=== PATIENT | male | born 1955 | race Caucasian/White ===

== ENCOUNTER → 2017-04-25 | Outpatient (CLI) | payer MEDICARE, OTHER ==
[~2017-04-25] MED LIST: ASPI-516 CHEW; CLON0.1T PO; CYCL10TA PO; CYMB60CA PO; GABA600T PO; HYDR-3583 PO; LEVO150T7 PO; LOSA50TA2 PO; MORP1TAB26 PO; SIMV20TA PO; WALKER WHEELS/F1 MIS; ZINC50TA2 PO
[2017-04-25 12:48] LABS: AUTOMATED NEUTROPHIL # 2.4 TH/MM3 (1.8-7.7); BASOPHIL # 0.1 TH/MM3 (0-0.2); EOSINOPHIL # 0.3 TH/MM3 (0-0.4); EOSINOPHIL % 3.8 % (0.0-4.0); HEMO FLAGS DIFF FINAL; LYMPH % 48.5 % (9.0-44.0); LYMPHOCYTE # 3.3 TH/MM3 (1.0-4.8); MEAN CELL VOLUME 91.1 FL (80.0-100.0); MEAN CORPUSCULAR HEMOGLOBIN 30.6 PG (27.0-34.0); MEAN CORPUSCULAR HGB CONC 33.5 % (32.0-36.0); MONO % 10.9 % (0.0-8.0); NEUT % 35.8 % (16.0-70.0); PLATELET COUNT 253 TH/MM3 (150-450); RED BLOOD COUNT 3.96 MIL/MM3 (4.50-5.90); RED CELL DISTRIBUTION WIDTH 13.9 % (11.6-17.2); WHITE BLOOD COUNT 6.7 TH/MM3 (4.0-11.0)
[2017-04-25 12:51] LABS: BLOOD, URINE NEG (NEG); COMMENT (UR) CULT NOT INDICATED; CULTURE IF INDICATED CULT NOT INDICATED; GLUCOSE,URINE NEG (NEG); KETONE, URINE NEG (NEG); MUCUS URINE FEW /lpf (OCC); NITRITE,URINE NEG (NEG); URINE COLOR YELLOW (YELLW/STRAW)
[2017-04-25 12:57] LABS: ANION GAP 5 MEQ/L (5-15); APTT (PATIENT) 27.5 SEC (24.3-30.1); AST (GOT) 22 U/L (15-37); BICARBONATE 32.2 MEQ/L (21.0-32.0); BLOOD UREA NITROGEN 21 MG/DL (7-18); CHLORIDE 102 MEQ/L (98-107); GLOMERULAR FILTRATION RATE 77 ML/MIN (>89); GLUCOSE,FASTING 112 MG/DL (74-99); INTERNATIONAL NORMALIZED RATIO 0.9 RATIO; POTASSIUM 4.4 MEQ/L (3.5-5.1); PROTHROMBIN TIME - PATIENT 10.2 SEC (9.8-11.6); SODIUM (NA) 139 MEQ/L (136-145)
[2017-04-25 12:59] LABS: ALKALINE PHOSPHATASE 123 U/L (45-117); ALT (GPT) 35 U/L (12-78); TOTAL BILIRUBIN ADULT 0.2 MG/DL (0.2-1.0)
--- NOTE | 2017-04-25 15:12 | RADRPT ---
EXAM DATE/TIME: 04/25/2017 13:05 [facility] COMPARISON: No previous studies available for comparison. INDICATIONS : Pre op evaluate for pneumonia, pneumothorax, or communicable diseases. MEDICAL HISTORY : None. SURGICAL HISTORY : None. ENCOUNTER: Initial ACUITY: 1 day PAIN SCORE: 0/10 LOCATION: Bilateral chest FINDINGS: PA and lateral views of the chest demonstrate the lungs to be symmetrically aerated without evidence of mass, infiltrate or effusion. The cardiomediastinal contours are unremarkable. Osseous structure s are intact. CONCLUSION: No acute disease. Clifford Araujo MD FACR on April 25, 2017 at 15:09 Board Certified Radiologist. This report was verified electronically.
--- NOTE | 2017-04-26 19:00 | EKG ---
Date Performed: 04/25/2017 Time Performed: 12:25:35 PTAGE: 62 years EKG: SINUS BRADYCARDIA BORDERLINE ECG Compared to prior tracing no significant change PREVIOUS TRACING : 03/27/2012 12.57.38 DOCTOR: Barbara Baker Interpretating Date/Time 04/26/2017 18:59:09
== END ==
LOC: CPRE 11:57
PROVIDERS: ATTEND Neurological Surgery
DX: Z01.810 Encounter for preprocedural cardiovascular examination (principal); Z01.811 Encounter for preprocedural respiratory examination; Z01.812 Encounter for preprocedural laboratory examination; Z01.818 Encounter for other preprocedural examination; Z79.01 Long term (current) use of anticoagulants; M51.36 Other intervertebral disc degeneration, lumbar region; M51.16 Intervertebral disc disorders with radiculopathy, lumbar region; M12.88 Other specific arthropathies, not elsewhere classified, other specified site; M99.83 Other biomechanical lesions of lumbar region; R94.31 Abnormal electrocardiogram [ECG] [EKG]
CPT/HCPCS: 36415; 71020; 80053; 81001; 85025; 85610; 85730; 86850; 86900; 86901; 86920; 93005

== ENCOUNTER 2017-04-27 05:54 | Inpatient (IN) | payer MEDICARE, OTHER ==
[~2017-04-27] VITALS: Ht 167.6 cm; Wt 95.3 kg
[~2017-04-27 05:54] MED LIST changes: -CYCL10TA PO; -WALKER WHEELS/F1 MIS
[2017-04-27] MEDS ORDERED: METOPROLOL TARTRATE 25 MG TAB PO PRN (06:30)
[2017-04-27] MEDS ORDERED: LACTATED RINGER'S 1000 ML IV PRN (06:30)
[2017-04-27] MEDS ORDERED: VANCOMYCIN 1,000 MG/NS 250ML (for <70 kg) IV SCH ×2 (06:30)
[2017-04-27] MEDS ORDERED: CHLORHEXIDINE GLUCONATE 2 % 1 PACK (2 CLOTHS) TOPICAL PRN (06:30)
[2017-04-27] MEDS ORDERED: SODIUM CHLORID 0.9% 500 ML IV PRN (06:30)
[2017-04-27] MEDS ORDERED: SODIUM CHLOR 0.9% 1000 ML INJ 1,000 ML IV SCH (06:30)
[2017-04-27] MEDS ORDERED: INSULIN HUMAN REGULAR 1,000 UNITS/10 ML VIAL SQ PRN (06:30)
[2017-04-27] MEDS ORDERED: THROMBIN (TOPICAL) 5,000 UNIT VIAL ONE (07:13)
[2017-04-27] MEDS ORDERED: GELFOAM SIZE 100 ONE (07:13)
[2017-04-27] MEDS ORDERED: VANCOMYCIN HCL 1000 MG VIAL ONE ×2 (07:13→07:14)
[2017-04-27] MEDS ORDERED: BUPIVACAINE/EPINEPHRINE 0.5% 50 ML VIAL ONE (07:13)
[2017-04-27] MEDS: POVIDONE IODINE 5% (ANTISEPSIS KIT) 4 APPLICATIONS EACH NARE PRN (07:14)
[2017-04-27] MEDS ORDERED: ACETAMINOPHEN 1000 MG/100 ML 100 ML IV ONE (07:18)
[2017-04-27] MEDS ORDERED: APREPITANT 40 MG CAP ONE (07:44)
--- NOTE | 2017-04-27 12:23 | RADRPT ---
EXAM DATE/TIME: 04/27/2017 08:06 [facility] COMPARISON: No previous studies available for comparison. INDICATIONS : L4-L5 posterior lumbar fusion. Level localization. MEDICAL HISTORY : None. SURGICAL HISTORY : Fusion, lumbar. ENCOUNTER: Initial ACUITY: 1 day PAIN SCORE: Non-responsive. LOCATION: Lumbar spine. FINDINGS: Metallic probe is directed at L5-S1 and L3-4. Previous lumbar fusion from L2-L4. CONCLUSION: Localization as above. Clifford Araujo MD FACR on April 27, 2017 at 12:20 Board Certified Radiologist. This report was verified electronically.
[2017-04-27] MEDS ORDERED: DO NOT ADM ANY ANTICOAGULANT DRUGS PRN (12:24)
--- NOTE | 2017-04-27 12:27 | RADRPT ---
EXAM DATE/TIME: 04/27/2017 08:06 [facility] COMPARISON: No previous studies available for comparison. INDICATIONS : Post-op L4-L5 posterior lumbar fusion. MEDICAL HISTORY : None. SURGICAL HISTORY : Fusion, lumbar. ENCOUNTER: Initial ACUITY: 1 day PAIN SCORE: Non-responsive. LOCATION: Lumbar spine. FINDINGS: Several views in the operating room show fusion procedure with interbody and posterior instrumentatio n at L4/L5. Patient was already fused at L2/L3 and L3/L4. Alignment is normal. No fractures are seen. CONCLUSION: New fusion at L4/L5. No acute complication demonstrated. Renaldo Richmond MD on April 27, 2017 at 12:24 Board Certified Radiologist. This report was verified electronically.
[2017-04-27] MEDS ORDERED: RESP: ALBUTEROL 2.5 MG/3 ML NEB (PRN) NEB (12:30)
[2017-04-27] MEDS ORDERED: ACETAMINOPHEN/HYDROcodone 325 MG/10 MG TAB PO PRN (12:30)
[2017-04-27] MEDS ORDERED: NALOXONE HCL 0.4 MG/ML AMP IV PUSH PRN (12:30)
[2017-04-27] MEDS ORDERED: ONDANSETRON HCL 4 MG/2 ML VIAL IV PUSH PRN (12:30)
[2017-04-27] MEDS ORDERED: cloNIDine HCL 0.1 MG TAB PO PRN (12:30)
[2017-04-27] MEDS ORDERED: diphenhydrAMINE HCL 25 MG CAP PO PRN (12:30)
[2017-04-27] MEDS ORDERED: ALUMINUM/MAGNESIUM/SIMETH 30 ML CUP PO PRN (12:30)
[2017-04-27] MEDS ORDERED: MENTHOL LOZENGE BUCCAL PRN (12:30)
[2017-04-27] MEDS ORDERED: ACETAMINOPHEN 325 MG TAB PO PRN (12:30)
[2017-04-27] MEDS ORDERED: PROMETHAZINE INJ 25 MG/ML VIAL IM PRN (12:30)
[2017-04-27] MEDS ORDERED: CALCIUM GLUCONATE INJ 1 GM in SODIUM CHLORIDE 0.9% INJ 100 ML IV PRN (12:30)
[2017-04-27] MEDS ORDERED: MAGNESIUM SULFATE INJ 2 GM in SODIUM CHLORIDE 0.9% INJ 100 ML IV PRN (12:30)
[2017-04-27] MEDS ORDERED: ZOLPIDEM TARTRATE 5 MG TAB PO PRN (12:30)
[2017-04-27] MEDS ORDERED: ASPIRIN 81 MG CHEW TAB CHEW SCH (12:30)
[2017-04-27] MEDS ORDERED: SODIUM CHLORIDE 0.9% FLUSH 10 ML FLUSH IV FLUSH PRN (12:30)
[2017-04-27] MEDS ORDERED: MAGNESIUM HYDROXIDE SUSP 30 ML CUP PO PRN (12:30)
[2017-04-27] MEDS ORDERED: POTASSIUM CHLOR 20 MEQ PREMIX 100 ML IV PRN (12:30)
--- NOTE | 2017-04-27 12:34 | PD.OP ---
[facility] Operative Report Date of Surgery: Apr 27, 2017 Preoperative Diagnosis: Intractable low back pain with bilateral radiculopathy and neurogenic claudication; L4-5 degenerative disc disease with facet and ligamentum flavum hypertrophy; previous L2-4 interbody fusion with pedicle screw fixation Postoperative Diagnosis: Same Procedure: Lumbar L4-5 transforaminal interbody fusion; L4 and L5 decompressive laminectomy with facetectomy; L4-5 pedicle screw fixation; L4-5 interbody cage placement; microsurgical technique Anesthesia: Gen. endotracheal by Tyrone Miller Surgeon: Christopher Torres M.D. Rn Manager(s): Hortencia Andino Operation and Findings: Following initiation of general endotracheal anesthesia, the patient had a Sheldon catheter placed along with sequential compression devices. A gram of vancomycin was administered intravenously and he was turned in a prone position on a Andreas frame, on a Rojelio table, and all pressure points adequately padded. The lumbosacral region was then prepped with Chloraprep and sterilely draped with Ioban along the usual sterile draping. A left paraspinal skin incision was then made extending from the L4-L5 level after infiltrating the skin with 0.5% Marcaine with epinephrine solution extending down through the fascia. The muscle fibers were split using avascular fatty plane and detached from the underlying facets, transverse process and lateral portion of lamina on the right side and a self-retaining retractor used for exposure. Intraoperative fluoroscopy was also used for level of confirmation along with microscope magnification for further dissection. There was significant facet and ligamentum flavum hypertrophy noted at the L4-5 levels. Left L4-5 facet was resected with a drill bit along with the lamina and there was severe foraminal and lateral recess stenosis from hypertrophied ligamentum flavum and facet which were decompressed bilaterally through the unilateral approach. There was significant disc height collapse along with disc protrusion also leading to the foraminal stenosis. Epidural hemostasis was achieved with bipolar cautery and Gelfoam with thrombin. Subsequently entered into the disc space at the L4-5 level with a #15 blade and kyle were used for discectomy. I then placed PEEK cage packed with local autograft bone and more local autograft bone was packed adjacent to the cage in interspace for added interbody fusion. With placement of the cage, I was able to distract the interspace and opened up the foramen further bilaterally. Subsequently in order to facilitate the fusion and provide stabilization, pedicle screw fixation was undertaken using [place] spine screws on entry point at the left L4-5 levels at the junction of the transverse process and facet. Subsequently using AP and lateral fluoroscopy tap and screw placement. The screws were then connected with a mukesh and locked in place with caps. The construct appeared very secure at this point. The area was then copiously irrigated with Vancomycin solution and powder. The retractors were removed and the bipolar cautery used for hemostasis. The muscle fascia was then approximated using 2-0 Vicryl interrupted stitches and then 3-0 Vicryl subcuticular stitches also placed in interrupted fashion. The final skin closure was completed with Mastisol and Steri-Strips. A sterile dressing was then applied. The patient then turned in supine position, extubated and taken to recovery room. There were no intraoperative complications. All sponge and needle counts were correct at the end of procedure. Estimated blood loss about 100 ml. Christopher Torres MD Apr 27, 2017 12:33
[2017-04-27] MEDS ORDERED: *morphine SULFATE 8 MG/ML PERIprocedure ONLY ONE (12:43)
[2017-04-27] MEDS ORDERED: *MEPERIDINE 25 MG INJ VIAL PERIprocedural Use ONLY ONE (13:00)
[2017-04-27] MEDS: NS + KCL 20 MEQ INJ 1,000 ML IV SCH ×2 (13:00→22:34)
[2017-04-27] MEDS: HYDROmorphone HCL PCA 6 MG/30 ML IV SCH ×2 (13:56→17:10)
[2017-04-27] MEDS ORDERED: PCA - TOTAL MG DILAUDID DELIVERED PER SHIFT OTHER SCH (14:00)
[2017-04-27 14:10] LABS: HEMATOCRIT 31.1 % (39.0-51.0); MEAN CELL VOLUME 91.5 FL (80.0-100.0); MEAN CORPUSCULAR HEMOGLOBIN 30.4 PG (27.0-34.0); MEAN CORPUSCULAR HGB CONC 33.3 % (32.0-36.0); PLATELET COUNT 209 TH/MM3 (150-450); REVIEW FLAG FINAL; WHITE BLOOD COUNT 10.3 TH/MM3 (4.0-11.0)
[2017-04-27] MEDS: GABAPENTIN 300 MG CAP PO SCH ×3 (15:00→20:52)
[2017-04-27] MEDS: CYCLOBENZAPRINE HCL 10 MG TAB PO SCH ×2 (15:15→20:52)
[2017-04-27 16:15] VITALS: BP 118/57; PULSE 65; RESP 18; TEMP 97.5; O2SAT 100
[2017-04-27 20:00] VITALS: BP 104/59; PULSE 64; RESP 19; TEMP 98; O2SAT 100
[2017-04-27] MEDS: MORPHINE SULFATE 60 MG CONTROLLED RELEASE TAB PO SCH (20:51)
[2017-04-27] MEDS: DOCUSATE SODIUM 100 MG CAP PO SCH (20:51)
[2017-04-27] MEDS: DULoxetine HCl DR 60 MG CAP PO SCH (20:51)
[2017-04-27] MEDS: SODIUM CHLORIDE 0.9% FLUSH 10 ML FLUSH IV FLUSH SCH (20:52)
[2017-04-27] MEDS: ACETAMINOPHEN/HYDROcodone 325 MG/10 MG TAB PO PRN (22:39)
[2017-04-28] VITALS (7 sets, daily range): BP systolic 115–149; BP diastolic 56–67; PULSE 16–80; RESP 16–21; TEMP 98.7–101.7; O2SAT 91–98
[2017-04-28] MEDS: LEVOTHYROXINE SODIUM 150 MCG TAB PO SCH (05:07)
[2017-04-28] MEDS: CYCLOBENZAPRINE HCL 10 MG TAB PO SCH ×3 (05:07→21:11)
[2017-04-28] MEDS: ACETAMINOPHEN/HYDROcodone 325 MG/10 MG TAB PO PRN ×2 (05:07→16:20)
[2017-04-28] MEDS: HYDROmorphone HCL PCA 6 MG/30 ML IV SCH (05:17)
--- NOTE | 2017-04-28 08:47 | HHI.NSPN ---
(Joselo Maguire) History Chief Complaint: Incisional back pain. (Joselo Maguire) Interval History Pt s/p lumbar L4-5 transforaminal interbody fusion; L4 and L5 decompressive laminectomy with facetectomy; L4-5 pedicle screw fixation; L4-5 interbody cage placement on 04/27/17. He complains of incisional back pain. He states the radicular pain in the lower extremities has resolved. No paresthesias in the lower extremity. No chest pain or shortness of breath. (Joselo Maguire) Review of Systems General: Negative for: fever, chills, insomnia Respiratory: Negative for: shortness of breath, cough, sputum Cardiovascular: Negative for: chest pain Gastrointestinal: Negative for: nausea, vomitting, diarrhea, constipation ( Joselo Maguire) Exam Results Vital Signs Date Time Temp Pulse Resp B/P (MAP) Pulse Ox O2 Delivery O2 Flow Rate FiO2 04/28/17 08:00 98.7 70 16 115/57 (76) 96 04/27/17 15:55 Room Air 04/27/17 15:00 2 Intake and Output 04/28/17 04/28/17 04/29/17 08:00 16:00 00:00 Output Total 550 ml Balance -550 ml (Joselo Maguire) Physical Examination Resp: CTA bilaterally Heart: NSR no murmurs Abd: Soft positive bs Skin: Pt log rolled incision clean and dry. Steri strips in place. Orders to leave bandage in place. Muscle: Moves LEs with good strength. Chronic weakness in right EHL and ankle is fused. Neuro: Pt awake and alert. Follows commands well. Speech clear and appropriate. (Joselo Maguire) Lab, Micro, Other Results Last Impressions Lumbar Spine X-Ray 04/27/17 0000 Signed Impressions: Service Date/Time: Thursday, April 27, 2017 08:06 - CONCLUSION: New fusion at L4/L5. No acute complication demonstrated. Renaldo Richmond MD Laboratory Tests Test 04/27/17 13:45 White Blood Count 10.3 TH/MM3 Red Blood Count 3.40 MIL/MM3 Hemoglobin 10.4 GM/DL Hematocrit 31.1 % Mean Corpuscular Volume 91.5 FL Mean Corpuscular Hemoglobin 30.4 PG Mean Corpuscular Hemoglobin Concent 33.3 % Red Cell Distribution Width 14.0 % Platelet Count 209 TH/MM3 Mean Platelet Volume 7.6 FL Blood Urea Nitrogen 23 MG/DL Creatinine 0.85 MG/DL Random Glucose 105 MG/DL Calcium Level 8.2 MG/DL Sodium Level 140 MEQ/L Potassium Level 4.0 MEQ/L Chloride Level 104 MEQ/L Carbon Dioxide Level 27.0 MEQ/L Anion Gap 9 MEQ/L Estimat Glomerular Filtration Rate 92 ML/MIN (Joselo Maguire) Medical Decision Making Impression and Plan A: 62 y/o M s/p Lumbar L4-5 transforaminal interbody fusion; L4 and L5 decompressive laminectomy with facetectomy; L4-5 pedicle screw fixation; L4-5 interbody cage placement on 04/27/17. P: Continue with pain control PT oob with brace on (Joselo Maguire) Attending Statement The exam, history, and the medical decision-making described in the above note were completed with the assistance of the mid-level provider. I reviewed and agree with the findings presented. I attest that I had a [id number] encounter with the patient on the same day, and personally performed and documented my assessment and findings in the medical record. (Christopher Torres MD) Joselo Maguire Apr 28, 2017 08:47 Christopher Torres MD Apr 28, 2017 15:06
[2017-04-28] MEDS: HYDROCHLOROTHIAZIDE 12.5 MG CAP PO SCH (09:00)
[2017-04-28] MEDS: LOSARTAN 50 MG TAB PO SCH (09:00)
[2017-04-28] MEDS ORDERED: NON-FORMULARY DRUG (Losartan-Hydrochlorothiazide 1 TAB) PO SCH (09:00)
[2017-04-28] MEDS: cloNIDine HCL 0.1 MG TAB PO SCH (09:00)
[2017-04-28] MEDS ORDERED: ZINC GLUCONATE 100 MG PO SCH (09:00)
[2017-04-28] MEDS: SODIUM CHLORIDE 0.9% FLUSH 10 ML FLUSH IV FLUSH SCH ×2 (09:15→21:00)
[2017-04-28] MEDS: DULoxetine HCl DR 60 MG CAP PO SCH ×2 (09:18→21:12)
[2017-04-28] MEDS: GABAPENTIN 300 MG CAP PO SCH ×4 (09:18→21:12)
[2017-04-28] MEDS: DOCUSATE SODIUM 100 MG CAP PO SCH ×2 (09:18→21:12)
[2017-04-28] MEDS: PRAVASTATIN SOD 40 MG TAB PO SCH (09:19)
[2017-04-28] MEDS: PANTOPRAZOLE SOD 40 MG DELAYED RELEASE TAB PO SCH (09:20)
[2017-04-28] MEDS: MORPHINE SULFATE 60 MG CONTROLLED RELEASE TAB PO SCH ×2 (09:20→21:12)
[2017-04-28] MEDS: LACTULOSE SYRUP 20 GM/30 ML CUP PO SCH (09:22)
[2017-04-28] MEDS: NS + KCL 20 MEQ INJ 1,000 ML IV SCH (09:59)
[2017-04-28] MEDS ORDERED: CYCL10TA PO (12:00)
[2017-04-28] MEDS ORDERED: HYDR-3583 PO (12:00)
[2017-04-28] MEDS: ASPIRIN 81 MG CHEW TAB CHEW SCH (13:01)
[2017-04-29] VITALS: BP 128/62; PULSE 70; RESP 17; TEMP 98.8; O2SAT 97
[2017-04-29] MEDS: ACETAMINOPHEN/HYDROcodone 325 MG/10 MG TAB PO PRN ×2 (01:02→10:41)
[2017-04-29 04:57] VITALS: BP 169/77; PULSE 72; RESP 18; TEMP 98.1; O2SAT 98
[2017-04-29] MEDS: HYDROmorphone HCL PF 1 MG/ML VIAL IV PUSH PRN ×5 (05:25→21:38)
[2017-04-29] MEDS: LEVOTHYROXINE SODIUM 150 MCG TAB PO SCH (05:28)
[2017-04-29] MEDS: CYCLOBENZAPRINE HCL 10 MG TAB PO SCH ×3 (05:28→21:38)
[2017-04-29 07:43] VITALS: BP 140/69; PULSE 69; RESP 18; TEMP 97.3; O2SAT 93
[2017-04-29] MEDS: PRAVASTATIN SOD 40 MG TAB PO SCH (08:29)
[2017-04-29] MEDS: DULoxetine HCl DR 60 MG CAP PO SCH ×2 (08:29→21:37)
[2017-04-29] MEDS: LACTULOSE SYRUP 20 GM/30 ML CUP PO SCH (08:29)
[2017-04-29] MEDS: cloNIDine HCL 0.1 MG TAB PO SCH (08:29)
[2017-04-29] MEDS: GABAPENTIN 300 MG CAP PO SCH ×4 (08:29→21:37)
[2017-04-29] MEDS: ASPIRIN 81 MG CHEW TAB CHEW SCH (08:29)
[2017-04-29] MEDS: LOSARTAN 50 MG TAB PO SCH (08:30)
[2017-04-29] MEDS: HYDROCHLOROTHIAZIDE 12.5 MG CAP PO SCH (08:30)
[2017-04-29] MEDS: DOCUSATE SODIUM 100 MG CAP PO SCH ×2 (08:30→21:37)
[2017-04-29] MEDS: MORPHINE SULFATE 60 MG CONTROLLED RELEASE TAB PO SCH ×2 (08:30→21:38)
[2017-04-29] MEDS: PANTOPRAZOLE SOD 40 MG DELAYED RELEASE TAB PO SCH (08:30)
[2017-04-29] MEDS: ENOXAPARIN SODIUM 40 MG/0.4 ML SYRINGE SQ SCH (08:31)
[2017-04-29] MEDS: SODIUM CHLORIDE 0.9% FLUSH 10 ML FLUSH IV FLUSH SCH ×2 (08:35→21:00)
--- NOTE | 2017-04-29 10:43 | HHI.NSPN ---
History Chief Complaint: Incisional back pain. Interval History Pt s/p lumbar L4-5 transforaminal interbody fusion; L4 and L5 decompressive laminectomy with facetectomy; L4-5 pedicle screw fixation; L4-5 interbody cage placement on 04/27/17. He complains of incisional back pain. He states the radicular pain in the lower extremities has resolved. No paresthesias in the lower extremity. No chest pain or shortness of breath. 04/29/17: Patient awake and alert resting comfortably in bed. Has not ambulated much other than to the bathroom with assistance. Has not had a bowel movement since surgery. Moderate incisional pain. Exam Results Vital Signs Date Time Temp Pulse Resp B/P (MAP) Pulse Ox O2 Delivery O2 Flow Rate FiO2 04/29/17 09:15 18 04/29/17 07:43 97.3 69 140/69 (92) 93 04/28/17 21:24 Nasal Cannula 2.00 Intake and Output 04/29/17 04/29/17 04/30/17 08:00 16:00 00:00 Output Total 500 ml Balance -500 ml Physical Examination Neurological examination: Patient awake alert. Moving all 4 extremities well with decreased right ankle movement secondary to operative fusion. Lumbar dressing is dry and intact. Lab, Micro, Other Results Last Impressions Lumbar Spine X-Ray 04/27/17 0000 Signed Impressions: Service Date/Time: Thursday, April 27, 2017 08:06 - CONCLUSION: New fusion at L4/L5. No acute complication demonstrated. Renaldo Richmodn MD Medical Decision Making Impression and Plan Assessmen: stable postop course status post L4-5 TLIF Plan: Continue physical therapy and mobilization. Felipe Ferrera MD Apr 29, 2017 10:43
[2017-04-29 12:31] VITALS: BP 152/70; PULSE 76; RESP 18; TEMP 97.9; O2SAT 97
[2017-04-29 20:00] VITALS: BP 151/74; PULSE 71; RESP 18; TEMP 99.1; O2SAT 94
[2017-04-30] MEDS: ACETAMINOPHEN/HYDROcodone 325 MG/10 MG TAB PO PRN ×3 (01:35→12:45)
[2017-04-30 04:00] VITALS: BP 145/70; PULSE 64; RESP 20; TEMP 98.7; O2SAT 97
[2017-04-30] MEDS: LEVOTHYROXINE SODIUM 150 MCG TAB PO SCH (04:55)
[2017-04-30] MEDS: CYCLOBENZAPRINE HCL 10 MG TAB PO SCH ×3 (04:55→23:24)
[2017-04-30] MEDS: HYDROmorphone HCL PF 1 MG/ML VIAL IV PUSH PRN ×3 (04:55→12:11)
[2017-04-30 08:22] VITALS: BP 130/65; PULSE 62; RESP 18; TEMP 98.2; O2SAT 97
[2017-04-30] MEDS: LACTULOSE SYRUP 20 GM/30 ML CUP PO SCH (08:28)
[2017-04-30] MEDS: DULoxetine HCl DR 60 MG CAP PO SCH ×2 (08:28→23:24)
[2017-04-30] MEDS: DOCUSATE SODIUM 100 MG CAP PO SCH ×2 (08:28→23:23)
[2017-04-30] MEDS: PRAVASTATIN SOD 40 MG TAB PO SCH (08:29)
[2017-04-30] MEDS: LOSARTAN 50 MG TAB PO SCH (08:29)
[2017-04-30] MEDS: cloNIDine HCL 0.1 MG TAB PO SCH (08:29)
[2017-04-30] MEDS: ASPIRIN 81 MG CHEW TAB CHEW SCH (08:29)
[2017-04-30] MEDS: MORPHINE SULFATE 60 MG CONTROLLED RELEASE TAB PO SCH ×2 (08:29→23:24)
[2017-04-30] MEDS: PANTOPRAZOLE SOD 40 MG DELAYED RELEASE TAB PO SCH (08:29)
[2017-04-30] MEDS: SODIUM CHLORIDE 0.9% FLUSH 10 ML FLUSH IV FLUSH SCH ×2 (08:29→21:00)
[2017-04-30] MEDS: GABAPENTIN 300 MG CAP PO SCH ×4 (08:29→23:23)
[2017-04-30] MEDS: ENOXAPARIN SODIUM 40 MG/0.4 ML SYRINGE SQ SCH (08:30)
[2017-04-30] MEDS: HYDROCHLOROTHIAZIDE 12.5 MG CAP PO SCH (08:30)
--- NOTE | 2017-04-30 11:13 | HHI.NSPN ---
History Chief Complaint: Incisional back pain. Interval History Pt s/p lumbar L4-5 transforaminal interbody fusion; L4 and L5 decompressive laminectomy with facetectomy; L4-5 pedicle screw fixation; L4-5 interbody cage placement on 04/27/17. He complains of incisional back pain. He states the radicular pain in the lower extremities has resolved. No paresthesias in the lower extremity. No chest pain or shortness of breath. 04/29/17: Patient awake and alert resting comfortably in bed. Has not ambulated much other than to the bathroom with assistance. Has not had a bowel movement since surgery. Moderate incisional pain. 04/30: Patient continues to complain of incisional pain in the right back. He is moving all 4 extremities well without complaints of radicular pain. Exam Results Vital Signs Date Time Temp Pulse Resp B/P (MAP) Pulse Ox O2 Delivery O2 Flow Rate FiO2 04/30/17 09:01 18 04/30/17 08:22 98.2 62 130/65 (86) 97 04/29/17 11:05 Nasal Cannula 2.00 Intake and Output 04/30/17 04/30/17 05/01/17 08:00 16:00 00:00 Output Total 1800 ml Balance -1800 ml Physical Examination Neurological examination: Patient awake, alert. Moving all 4 extremities well with decreased right ankle movement secondary to operative fusion. Lumbar dressing was removed today. Incision is intact without drainage. Lab, Micro, Other Results Last Impressions Lumbar Spine X-Ray 04/27/17 0000 Signed Impressions: Service Date/Time: Thursday, April 27, 2017 08:06 - CONCLUSION: New fusion at L4/L5. No acute complication demonstrated. Renaldo Richmond MD Medical Decision Making Impression and Plan Assessmen: Status post L4 5 TLIF. Patient with complaints of incisional pain and has not had much in the way of mobilization since surgery. Plan: Continue observation and stress mobilization out of bed. Sheldon will be discontinued today. Felipe Ferrera MD Apr 30, 2017 11:12
[2017-04-30 12:25] VITALS: BP 132/63; PULSE 64; RESP 18; TEMP 98.1; O2SAT 100
[2017-04-30 16:34] VITALS: BP 152/68; PULSE 75; RESP 18; TEMP 100.2; O2SAT 97
[2017-04-30 18:14] VITALS: O2SAT 97
[2017-04-30 20:24] VITALS: BP 143/64; PULSE 73; RESP 16; TEMP 98.6; O2SAT 97
[2017-05-01] VITALS (10 sets, daily range): BP systolic 92–170; BP diastolic 51–77; PULSE 59–73; RESP 18; TEMP 97.4–98.8; O2SAT 95–99
[2017-05-01] MEDS: CYCLOBENZAPRINE HCL 10 MG TAB PO SCH ×3 (05:59→20:32)
[2017-05-01] MEDS: LEVOTHYROXINE SODIUM 150 MCG TAB PO SCH (05:59)
[2017-05-01] MEDS: ACETAMINOPHEN/HYDROcodone 325 MG/10 MG TAB PO PRN ×2 (06:05→12:52)
[2017-05-01] MEDS: HYDROmorphone HCL PF 1 MG/ML VIAL IV PUSH PRN (07:57)
[2017-05-01] MEDS: LOSARTAN 50 MG TAB PO SCH (07:58)
[2017-05-01] MEDS: HYDROCHLOROTHIAZIDE 12.5 MG CAP PO SCH (07:58)
[2017-05-01] MEDS: LACTULOSE SYRUP 20 GM/30 ML CUP PO SCH (07:58)
[2017-05-01] MEDS: PANTOPRAZOLE SOD 40 MG DELAYED RELEASE TAB PO SCH (07:58)
[2017-05-01] MEDS: MORPHINE SULFATE 60 MG CONTROLLED RELEASE TAB PO SCH ×2 (07:58→20:32)
[2017-05-01] MEDS: DULoxetine HCl DR 60 MG CAP PO SCH ×2 (07:58→20:32)
[2017-05-01] MEDS: GABAPENTIN 300 MG CAP PO SCH ×4 (07:58→20:32)
[2017-05-01] MEDS: ENOXAPARIN SODIUM 40 MG/0.4 ML SYRINGE SQ SCH (07:59)
[2017-05-01] MEDS: cloNIDine HCL 0.1 MG TAB PO SCH (07:59)
[2017-05-01] MEDS: PRAVASTATIN SOD 40 MG TAB PO SCH (07:59)
[2017-05-01] MEDS: ASPIRIN 81 MG CHEW TAB CHEW SCH (07:59)
[2017-05-01] MEDS: SODIUM CHLORIDE 0.9% FLUSH 10 ML FLUSH IV FLUSH SCH ×2 (07:59→20:34)
[2017-05-01] MEDS: DOCUSATE SODIUM 100 MG CAP PO SCH ×2 (07:59→20:32)
--- NOTE | 2017-05-01 10:48 | HHI.NSPN ---
History Chief Complaint: Incisional back pain. Interval History Pt s/p lumbar L4-5 transforaminal interbody fusion; L4 and L5 decompressive laminectomy with facetectomy; L4-5 pedicle screw fixation; L4-5 interbody cage placement on 04/27/17. He complains of incisional back pain. He states the radicular pain in the lower extremities has resolved. No paresthesias in the lower extremity. No chest pain or shortness of breath. 04/29/17: Patient awake and alert resting comfortably in bed. Has not ambulated much other than to the bathroom with assistance. Has not had a bowel movement since surgery. Moderate incisional pain. 04/30: Patient continues to complain of incisional pain in the right back. He is moving all 4 extremities well without complaints of radicular pain. 05/01: Patient improved today. He is up and ambulated with a walker. Decreased complaints of incisional back pain. Exam Results Vital Signs Date Time Temp Pulse Resp B/P (MAP) Pulse Ox O2 Delivery O2 Flow Rate FiO2 05/01/17 08:29 16 05/01/17 08:03 97.4 59 170/77 (108) 96 04/30/17 18:14 Nasal Cannula 2.00 Intake and Output 05/01/17 05/01/17 05/02/17 08:00 16:00 00:00 Output Total 800 ml Balance -800 ml Physical Examination Neurological examination: Patient awake, alert. Moving all 4 extremities well with decreased right ankle movement secondary to operative fusion. Incision is intact without drainage. Medical Decision Making Impression and Plan Assessment: Status post L4 5 TLIF. Improving complaints of incisional pain and mobilization. Plan: Continue observation. Patient should be ready for discharge early in the week. Felipe Ferrera MD May 01, 2017 10:48
[2017-05-02 00:45] VITALS: BP 142/75; PULSE 59; RESP 18; TEMP 98.1; O2SAT 97
[2017-05-02 05:22] VITALS: BP 133/70; PULSE 61; RESP 18; TEMP 98.4; O2SAT 96
[2017-05-02] MEDS: LEVOTHYROXINE SODIUM 150 MCG TAB PO SCH (06:17)
[2017-05-02] MEDS: CYCLOBENZAPRINE HCL 10 MG TAB PO SCH (06:17)
[2017-05-02 08:11] VITALS: O2SAT 95
[2017-05-02 08:31] VITALS: BP 161/78; PULSE 59; RESP 16; TEMP 98; O2SAT 96
[2017-05-02] MEDS: SODIUM CHLORIDE 0.9% FLUSH 10 ML FLUSH IV FLUSH SCH (09:00)
--- NOTE | 2017-05-02 09:02 | HHI.NSPN ---
History Chief Complaint: Incisional back pain. Interval History Pt s/p lumbar L4-5 transforaminal interbody fusion; L4 and L5 decompressive laminectomy with facetectomy; L4-5 pedicle screw fixation; L4-5 interbody cage placement on 04/27/17. He complains of incisional back pain. He states the radicular pain in the lower extremities has resolved. No paresthesias in the lower extremity. No chest pain or shortness of breath. 05/02: Pt complains of incisional back pain rated as a 5-6/10 but states he is ready to go home. No radiculopathy in LEs. No paresthesias in LEs. Ambulates with a walker. Review of Systems General: Negative for: fever, chills, insomnia Respiratory: Negative for: shortness of breath, cough, sputum Cardiovascular: Negative for: chest pain Gastrointestinal: Negative for: nausea, vomitting, diarrhea, constipation Exam Results Vital Signs Date Time Temp Pulse Resp B/P (MAP) Pulse Ox O2 Delivery O2 Flow Rate FiO2 05/02/17 08:31 98.0 59 16 96 161/78 (105) 05/02/17 08:11 21 05/01/17 18:27 Nasal Cannula 2.00 Intake and Output 05/02/17 05/02/17 05/03/17 08:00 16:00 00:00 Output Total 600 ml Balance -600 ml Physical Examination Resp: CTA bilaterally Heart: NSR no murmurs Abd: Soft positive bs Skin: Pt log rolled. Incision clean and dry. No signs of infection. Muscle: Moves LEs with good strength. Neuro: Pt awake and alert. Follows commands well. Speech clear and appropriate. Lab, Micro, Other Results Last Impressions Lumbar Spine X-Ray 04/27/17 0000 Signed Impressions: Service Date/Time: Thursday, April 27, 2017 08:06 - CONCLUSION: New fusion at L4/L5. No acute complication demonstrated. Renaldo Richmond MD Medical Decision Making Impression and Plan A: 62 y/o M s/p Lumbar L4-5 transforaminal interbody fusion; L4 and L5 decompressive laminectomy with facetectomy; L4-5 pedicle screw fixation; L4-5 interbody cage placement on 04/27/17. P: Discharge pt home. Discussed incisional care. Joselo Maguire May 02, 2017 9:02 am
[2017-05-02] MEDS ORDERED: WALKER WHEELS/F1 MIS (09:07)
--- NOTE | 2017-05-02 09:14 | HHI.FF ---
Face to Face Verification Diagnosis: (1) Degenerative disc disease, cervical (2) Facet arthropathy, lumbar (3) Synovial cyst of lumbar facet joint Physical Therapy Order: Evaluate and Treat, Improve ambulation, Strength and gait training Home Health Nursing Order: Wound care and dressing changes Nursing assessment with vital signs I have seen patient James Jessica on 05/02/17. My clinical findings support the need for the requested home health care services because: Deconditioned w/ increased weakness High risk of falls I certify that my clinical findings support that this patient is homebound because: Post-op weakness Unsteady gait/balance Unable to use public transportation Joselo Maguire May 02, 2017 09:14
[2017-05-02] MEDS: HYDROCHLOROTHIAZIDE 12.5 MG CAP PO SCH (09:24)
[2017-05-02] MEDS: LACTULOSE SYRUP 20 GM/30 ML CUP PO SCH (09:24)
[2017-05-02] MEDS: LOSARTAN 50 MG TAB PO SCH (09:24)
[2017-05-02] MEDS: ASPIRIN 81 MG CHEW TAB CHEW SCH (09:24)
[2017-05-02] MEDS: DOCUSATE SODIUM 100 MG CAP PO SCH (09:25)
[2017-05-02] MEDS: cloNIDine HCL 0.1 MG TAB PO SCH (09:25)
[2017-05-02] MEDS: DULoxetine HCl DR 60 MG CAP PO SCH (09:25)
[2017-05-02] MEDS: PRAVASTATIN SOD 40 MG TAB PO SCH (09:25)
[2017-05-02] MEDS: GABAPENTIN 300 MG CAP PO SCH ×2 (09:25→12:35)
[2017-05-02] MEDS: PANTOPRAZOLE SOD 40 MG DELAYED RELEASE TAB PO SCH (09:25)
[2017-05-02] MEDS: MORPHINE SULFATE 60 MG CONTROLLED RELEASE TAB PO SCH (09:25)
[2017-05-02] MEDS: ENOXAPARIN SODIUM 40 MG/0.4 ML SYRINGE SQ SCH (09:26)
--- NOTE | 2017-05-02 09:41 | HHI.DS ---
Discharge Summary Admission Date Apr 27, 2017 at 5:54 am Discharge Date: May 02, 2017 Admitting Diagnosis (1) Degenerative disc disease, cervical Diagnosis: Principal ICD Code: M50.90 - Degenerative disc disease, cervical Status: Acute (2) Facet arthropathy, lumbar Diagnosis: Principal ICD Code: M47.816 - Facet arthropathy, lumbar Status: Acute (3) Synovial cyst of lumbar facet joint Diagnosis: Principal ICD Code: M71.38 - Synovial cyst of lumbar facet joint Status: Acute Procedures L4 and L5 decompressive laminectomy with L4/L5 transforaminal interbody fusion with cage and pedicle screw fixation by Christopher Torres on 04/27/17. Brief History Is a 62-year-old male who presented to our office with a history of low back pain. He stated that the pain radiated to the left posterior leg to the calf. He denied any right lower extremity symptoms initially however the more recent days prior to his surgery he did start to develop similar symptoms in the right leg but not as prominent as the left. He denies any numbness but states that he has pain that feels electrical in nature. He rates his back pain as 8/10. He states the back pain is worse than the leg pain. His back pain is not positional does not improve he lays down. He does pool exercises on his all and states that he has been to physical therapy numerous times in the past and is landing exercises. He's had pain management several years ago and states that this did not help him is not interested in any further pain management strategies. He denies any weakness in the lower 70s. He denies any bowel or bladder incontinence. He is taking morphine 60 mg twice a day along with Lortab 10 mg every 6 hours when necessary breakthrough pain and despite this his pain is not controlled. Imaging MRI of the lumbar spine from March 29, 2017 reveals a previous L2/L3 and L3/ L4 right-sided pedicle screw with interbody fusion and a well decompressed spinal canal. This progression of the adjacent segment disease in particular L4 /L5 with disc degeneration and facet arthropathy and associated spinal and foraminal stenosis left more than right. He also has lumbar scoliotic deformity. Hospital Course Patient underwent the above-noted procedure performed by Dr. Torres. There was no intraoperative complications. Postoperatively the patient's pain was controlled with a DAM TENDER ASSISTANT. Physical therapy was consulted in his activity status was increased. Patient's Sheldon catheter was removed. Patient's DAM TENDER ASSISTANT was discontinued and patient's pain was controlled with oral pain medication. Patient was discharged home in stable condition. Pt Condition on Discharge: Stable Discharge Disposition: Disch w/ Home Health Serv Discharge Instructions DIET: Follow Instructions for: As Tolerated, No Restrictions ACTIVITIES You can perform: Shower Only-No Bath Activities to Avoid: Lifting/Bending, Prolonged Standing, Strenuous Activity, Bathing, Driving ADDITIONAL Activity Instructio: lumbar brace on when sitting, standing, or walking. New Medications: Walker with Front Wheels (Walker with Front Wheels) 1 Mis Mis EA .ROUTE DIRECTED, #1 0 Refills Cyclobenzaprine (Flexeril) 10 Mg Tab 10 MG PO Q8HR PRN for MUSCLE SPASM, #60 TAB Hydrocodone/Acetaminophen (Hydrocodone-Acetamin 10-325 mg) 10 Mg-325 Mg Tablet 1 TAB PO Q4H PRN for pain, #60 CAP Continued Medications: Aspirin (Aspirin) 81 Mg Chew 81 MG CHEW ONCE, #1 TAB 0 Refills Clonidine (Clonidine) 0.1 Mg Tab 0.1 MG PO DAILY for Blood Pressure Management, #60 TAB [address] (Cymbalta DR) 60 Mg Capdr 60 MG PO BID, #30 CAP 0 Refills Gabapentin (Gabapentin) 600 Mg Tab 600 MG PO QID, #90 TAB 0 Refills Hydrocodone-Acetaminophen (Hydrocodone-Acetaminophen) 10-325 mg Tab 1 TAB PO Q4H PRN for PAIN, TAB 0 Refills Levothyroxine (Levothyroxine) 150 Mcg Tab 150 MCG PO DAILY for Thyroid, #30 TAB 0 Refills Losartan-Hydrochlorothiazide (Losartan-Hydrochlorothiazide) 50-12.5 Mg Tab 1 TAB PO DAILY for Blood Pressure Management, #30 TAB 0 Refills Morphine ER (Morphine ER) 60 Mg Tab 60 MG PO BID for Pain Management, TAB 0 Refills Simvastatin (Simvastatin) 20 Mg Tab 20 MG PO DAILY for Cholesterol Management, #30 TAB 0 Refills Zinc Gluconate (Zinc Gluconate) 50 Mg Tab 100 MG PO DAILY, TAB Joselo Maguire May 02, 2017 9:41 am
[2017-05-02 12:33] VITALS: BP 122/76; PULSE 65; RESP 18; TEMP 98.1; O2SAT 96
== END 2017-05-02 13:42 | disposition home health service (06) | DRG 460 ==
LOC: HSDI 05:54 → N05B 16:27
PROVIDERS: ADMIT Neurological Surgery; ATTEND Neurological Surgery
PROC: 0ST20ZZ Resection of Lumbar Vertebral Disc, Open Approach (ICD-10-PCS; 2017-04-27)
PROC: 0SG00AJ Fusion of Lumbar Vertebral Joint with Interbody Fusion Device, Posterior Approach, Anterior Column, Open Approach (ICD-10-PCS; principal; 2017-04-27 08:08)
DX: M51.16 Intervertebral disc disorders with radiculopathy, lumbar region (principal); I10 Essential (primary) hypertension; M46.96 Unspecified inflammatory spondylopathy, lumbar region; Z98.1 Arthrodesis status; M71.38 Other bursal cyst, other site; Z87.891 Personal history of nicotine dependence; E03.9 Hypothyroidism, unspecified; M12.88 Other specific arthropathies, not elsewhere classified, other specified site; M99.83 Other biomechanical lesions of lumbar region; R94.31 Abnormal electrocardiogram [ECG] [EKG]; Z79.01 Long term (current) use of anticoagulants
CPT/HCPCS: 72020; 72100; 76000; 80048; 85027; 94150; C1713; J0131; J0690; J1170; J1650; J2175; J2270; J3370; J3480; J7050; J7120; J8501; L0627